=== PATIENT | female | born 1985 ===

== ENCOUNTER 2019-01-30 11:31 | Inpatient (IN) ==
[2019-01-30] MEDS ORDERED: OXYTOCIN 30 UNITS/500 ML BAG IV PRN ×2 (11:56→19:26)
[2019-01-30] MEDS: LACTATED RINGER'S 1,000 ML IV PRN ×2 (11:58→21:23)
[2019-01-30 12:17] LABS: Hematocrit (blood only) 33.2 % (37-47); Hemoglobin 10.5 g/dL (12.0-16.0); Mean Corpuscular Hemoglobin 26.6 pg (25-34); Mean Corpuscular Volume 84.1 fL (80-100); Mean Platelet Volume 10.6 fL (7.4-10.4); Platelet Count 224 K/uL (130-400); RDW Coefficient of Variation 14.7 % (11.5-14.5); RDW Standard Deviation 45.7 fL (36.4-46.3); Red Blood Count 3.95 M/uL (4.2-5.4); White Blood Count 10.29 K/uL (4.8-10.8)
[2019-01-30 12:31] LABS: Mean Corpuscular Hgb Conc 31.6 g/dL (32-36)
--- NOTE | 2019-01-30 12:45 | Obstetrical Progress Note ---
Date of Service January 30, 2019 Subjective Admit Note 33 F P2002 at 39+ weeks admitted with SROM clear fluid and active contractions. FHT Cat 1. Cervix 4-5/75/-2/vertex on exam by RN. GBS is negative. Will admit in labor. Results & Data Vital Signs (Past 12 Hours) Vital Signs Pulse BP 01/30/19 11:36 76 110/61
--- NOTE | 2019-01-30 19:25 | Obstetrical Progress Note ---
Date of Service January 30, 2019 Physical Exam Genitourinary: OB Exam Abdomen: + vertex, + estimated weight (7.5 lbs) and + irregular contractions Manual OB Exam: + cervical dilation 5 cm, + cervical effacement 60%, + station -2 and + amniotic fluid clear OB Exam Monitor Tracing: + external FHT monitor used, + external uterine monitor used and + category I Results & Data Vital Signs (Past 12 Hours) Vital Signs Temp Pulse Resp BP 01/30/19 19:09 36.6 C 67 16 120/66 01/30/19 17:47 36.9 C 59 L 20 107/57 L 01/30/19 15:46 75 106/58 L 01/30/19 15:45 36.9 C 20 01/30/19 13:32 36.7 C 63 20 110/59 L 01/30/19 11:45 36.5 C 18 01/30/19 11:36 76 110/61
[2019-01-30] MEDS ORDERED: ePHEDrine sulfate 50 MG/ML AMP ONE (21:05)
[2019-01-30] MEDS ORDERED: fentaNYL citrate 100 MCG/2 ML VIAL ONE (21:05)
[2019-01-30] MEDS ORDERED: BUPIVACAINE 0.25% 30 ML VIAL ONE (21:05)
[2019-01-30] MEDS ORDERED: fentaNYL 2MCG/ML ROPIV 1.25MG/ML 100 ML BAG EPI ONE (21:06)
--- NOTE | 2019-01-30 21:22 | Anesthesiology Consultation ---
Date of Service January 30, 2019 Assessment & Plan Chart Review Chart Review: Acceptable Risk for Surgery, Patient NOT seen in Pre Admission Testing and Acceptable Risk for Labor Epidural Consults Requested none ASA ASA3 Proposed Anesthesia Anesthesia Type: General, Labor Epidural and CSE Risk / Benefits Reviewed With: PT / POA / Parent / Guardian, Accepts Plan and Informed Consent Obtained History Height/Weight Height: 5 ft 6 in Weight: 88.9 kg Allergies Allergy/AdvReac Type Severity Reaction Status Date / Time No Known Allergies Allergy Verified 12/31/18 19:58 Medications Home Medications Medication Instructions Recorded Confirmed Last Taken cholecalciferol (vitamin D3) 1,000 unit PO DAILY 12/31/18 01/30/19 1 Day Ago [Vitamin D3] ~01/29/19 levothyroxine 100 mcg PO DAILY 12/31/18 01/30/19 01/30/19 vit [id number] 1 tab PO DAILY 12/31/18 01/30/19 1 Day Ago [ Vitamin] ~01/29/19 Active Medications Generic Name Dose Route Start Last Admin Trade Name Freq PRN Reason Stop Dose Admin Lactated Ringer's 1,000 mls @ 125 mls/hr 01/30/19 11:56 01/30/19 21:03 Lr IV 02/01/19 11:55 999 mls/hr .Q8H PRN Infusion L&D Protocol Protocol Oxytocin 30 units in 500 mls @ 1 mls/hr 01/30/19 19:26 01/30/19 19:56 Pitocin IV 02/01/19 19:25 0.06 units/hr .Q24H PRN 1 mls/hr Labor Induction/Augmentation Administration Protocol 0.06 UNITS/HR NPO Date Last Intake of Fluids: 01/30/19 Time Last Intake of Fluids: 19:15 Date Last Intake of Solids: 01/30/19 Time Last Intake of Solids: 08:00 Past Medical History Medical History Classic migraine nonproblematic with this Gestational diabetes 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 Observed for 2 weeks then released at 36 weeks. Vitamin D deficiency Exercise / Class Metabolic Activity II 4-5 Yardwork/Stairs/Walk up hill Past Surgical History Surgical History Hx of cholecystectomy Past Anesthesia History No Hx of Anesthesia Complications and No Family Hx of Anesthesia Complications History of PONV No Hx of PONV and No Hx of Motion Sickness Social History Smoking Status: Never smoker Do You Dip or Chew Tobacco: No Hx Alcohol Use: No Hx Substance Use: No substance use type: does not use Physical Exam Vital Signs Last Vital Signs Temp 36.5 C 01/30/19 21:00 Pulse 59 L 01/30/19 21:13 Resp 16 01/30/19 21:00 BP 105/53 L 01/30/19 20:59 Pulse Ox 99 01/30/19 21:13 Constitutional + obese ENMT Mouth: + small oral opening; no dentition abnormality Thyromental Distance: < 3.5 Finger Breadths Mallampati Class: III Neck normal visual inspection and trachea midline; neck extension not limited Respiratory normal respiratory effort Auscultation: lungs clear to auscultation bilaterally Cardiovascular Rate/Rhythm: regular rate and regular rhythm Heart Sounds: no murmur Vessels: no carotid bruit Musculoskeletal Spine: lumbar spine normal to inspection; normal cervical ROM Neurologic moves all extremities Motor/Sensory: no sensory deficit Psychiatric Orientation: alert and oriented x 3 Testing Laboratory Results 01/30/19 12:06
[2019-01-30] MEDS ORDERED: NALOXONE HCL 0.4 MG/1 ML VIAL/CARP IV PRN (21:46)
[2019-01-30] MEDS ORDERED: NALBUPHINE HCL INJ 10 MG/ML AMP IV PRN (21:46)
[2019-01-30] MEDS ORDERED: fentaNYL 2MCG/ML ROPIV 1.25MG/ML 100 ML BAG EPI PRN (21:46)
[2019-01-30] MEDS ORDERED: PROMETHAZINE HCL 25 MG in SODIUM CHLORIDE 0.9% 50 ML IV PRN (21:46)
[2019-01-30] MEDS ORDERED: ONDANSETRON INJ 2 MG/ML 2 ML VIAL IV PRN (21:46)
[2019-01-30] MEDS ORDERED: ePHEDrine sulfate 50 MG/ML AMP IV PRN (21:46)
[2019-01-30] MEDS ORDERED: DiphenhydrAMINE HCL 50 MG/ML VIAL IV PRN (21:46)
[2019-01-30] MEDS ORDERED: NALOXONE HCL 1 MG in SODIUM CHLORIDE 0.9% 1000ML 1,000 ML IV PRN (21:46)
[2019-01-31] MEDS: LACTATED RINGER'S 1,000 ML IV PRN ×2 (01:56→06:31)
--- NOTE | 2019-01-31 05:26 | Obstetrical Progress Note ---
Date of Service January 31, 2019 Physical Exam Genitourinary: Manual OB Exam: + cervical dilation 9 cm, + cervical effacement 100% and + station -1 OB Exam Monitor Tracing: + external FHT monitor used, + external uterine monitor used and + category II bulging bag ruptured for clear fluid with amni-hook Results & Data Vital Signs (Past 12 Hours) Vital Signs Temp Pulse Resp BP Pulse Ox 01/31/19 05:18 58 L 97 01/31/19 05:16 57 L 18 94/50 L 01/31/19 05:13 83 97 01/31/19 05:08 63 98 01/31/19 05:03 72 97 01/31/19 05:02 36.8 C 16 01/31/19 05:00 66 102/63 01/31/19 04:58 71 98 01/31/19 04:53 75 98 01/31/19 04:48 60 95 01/31/19 04:46 56 L 108/63 01/31/19 04:43 61 97 01/31/19 04:38 67 98 01/31/19 04:33 67 96 01/31/19 04:30 60 104/65 01/31/19 04:28 69 96 01/31/19 04:23 69 98 01/31/19 04:18 64 96 01/31/19 04:16 66 108/67 01/31/19 04:13 66 97 01/31/19 04:08 76 96 01/31/19 04:03 70 97 01/31/19 04:00 36.7 C 59 L 16 104/57 L 01/31/19 03:59 68 89 L 01/31/19 03:58 84 95 01/31/19 03:53 61 94 01/31/19 03:48 64 94 01/31/19 03:46 60 103/56 L 01/31/19 03:43 64 94 01/31/19 03:38 59 L 96 01/31/19 03:33 74 95 01/31/19 03:31 71 103/65 01/31/19 03:28 70 96 01/31/19 03:23 79 90 01/31/19 03:20 69 87 L 01/31/19 03:18 56 L 94 01/31/19 03:16 59 L 106/55 L 01/31/19 03:13 58 L 93 01/31/19 03:08 59 L 96 01/31/19 03:03 59 L 95 01/31/19 03:01 58 L 108/60 01/31/19 02:58 60 95 01/31/19 02:53 77 96 01/31/19 02:48 62 94 01/31/19 02:46 57 L 105/59 L 01/31/19 02:43 61 96 01/31/19 02:42 70 90 01/31/19 02:38 65 93 01/31/19 02:33 59 L 95 01/31/19 02:31 66 105/60 01/31/19 02:28 70 98 01/31/19 02:23 58 L 93 01/31/19 02:18 58 L 93 01/31/19 02:17 57 L 95/50 L 01/31/19 02:13 65 94 01/31/19 02:08 62 96 01/31/19 02:03 80 96 01/31/19 02:02 71 16 103/55 L 01/31/19 01:58 71 96 01/31/19 01:57 36.5 C 16 01/31/19 01:53 90 97 01/31/19 01:48 102 H 98 01/31/19 01:47 75 16 100/63 01/31/19 01:43 76 96 01/31/19 01:38 83 97 01/31/19 01:33 81 95 01/31/19 01:30 85 116/70 01/31/19 01:28 81 96 01/31/19 01:23 110 H 98 01/31/19 01:18 72 97 01/31/19 01:15 71 110/68 01/31/19 01:13 80 98 01/31/19 01:08 83 96 01/31/19 01:03 65 98 01/31/19 01:00 88 116/69 01/31/19 00:58 69 97 01/31/19 00:53 74 97 01/31/19 00:48 68 97 01/31/19 00:47 66 16 114/67 01/31/19 00:43 68 97 01/31/19 00:38 61 96 01/31/19 00:33 68 96 01/31/19 00:31 72 16 109/67 01/31/19 00:28 70 96 01/31/19 00:23 36.7 C 71 18 96 01/31/19 00:18 63 96 01/31/19 00:16 81 16 125/68 01/31/19 00:13 80 92 01/31/19 00:09 86 89 L 01/31/19 00:08 66 93 01/31/19 00:03 72 95 01/31/19 00:00 61 16 109/69 01/30/19 23:58 95 H 96 01/30/19 23:53 61 95 01/30/19 23:48 69 96 01/30/19 23:47 60 113/70 01/30/19 23:43 81 97 01/30/19 23:38 77 97 01/30/19 23:34 80 89 L 01/30/19 23:33 95 H 95 01/30/19 23:31 64 16 108/65 01/30/19 23:28 67 93 01/30/19 23:23 63 95 01/30/19 23:18 65 95 01/30/19 23:16 62 105/63 01/30/19 23:13 62 94 01/30/19 23:08 59 L 96 01/30/19 23:03 55 L 95 01/30/19 23:02 62 90 01/30/19 23:00 36.4 C L 71 16 98/53 L 01/30/19 22:58 57 L 94 01/30/19 22:53 61 93 01/30/19 22:48 66 94 01/30/19 22:47 56 L 16 99/53 L 01/30/19 22:43 53 L 94 01/30/19 22:38 70 94 01/30/19 22:33 59 L 96 01/30/19 22:29 51 L 100/53 L 01/30/19 22:28 57 L 94 01/30/19 22:26 55 L 93/52 L 01/30/19 22:23 57 L 94 01/30/19 22:19 50 L 100/50 L 01/30/19 22:18 54 L 94 01/30/19 22:14 53 L 99/51 L 01/30/19 22:13 56 L 94 01/30/19 22:11 54 L 99/55 L 01/30/19 22:08 54 L 94 01/30/19 22:06 56 L 94 01/30/19 22:04 56 L 97/52 L 01/30/19 22:03 55 L 95 01/30/19 22:00 54 L 16 96/50 L 94 01/30/19 21:58 61 96 01/30/19 21:54 55 L 98/50 L 01/30/19 21:53 57 L 97 01/30/19 21:51 58 L 99/52 L 01/30/19 21:50 62 110/56 L 01/30/19 21:48 72 97/52 L 97 01/30/19 21:45 57 L 86/53 L 01/30/19 21:43 64 97 01/30/19 21:42 65 94/60 L 01/30/19 21:39 57 L 16 106/70 01/30/19 21:38 60 98 01/30/19 21:36 72 16 120/74 01/30/19 21:33 62 99 01/30/19 21:28 61 98 01/30/19 21:23 62 98 01/30/19 21:18 62 98 01/30/19 21:13 59 L 99 01/30/19 21:00 36.5 C 16 01/30/19 20:59 70 105/53 L 01/30/19 19:58 75 16 111/73 01/30/19 19:09 36.6 C 67 16 120/66 01/30/19 17:47 36.9 C 59 L 20 107/57 L
--- NOTE | 2019-01-31 06:09 | Delivery Summary ---
Vaginal Delivery Summary Date of Service January 31, 2019 Delivery Note live male TANJA over intact perineum with delayed cord clamping and Apgars 8/9 weight pending. Cord blood obtained and placenta delivered spontaneously and intact. No tears. EBL 150 ml. Final sponge and instrument count are correct. Mom and baby stable.
[2019-01-31] MEDS ORDERED: BENZOCAINE 20% AER SPR 82.5 GM CAN EXT PRN (06:14)
[2019-01-31] MEDS ORDERED: MEASLES, MUMPS & RUBELLA VIRUS VIAL SQ ONE (06:14)
[2019-01-31] MEDS ORDERED: DIPHTHERIA/TETANUS/PERTUSSIS 0.5 ML SYR/VIAL IM ONE (06:14)
[2019-01-31] MEDS ORDERED: HYDROCORTISONE ACETATE 25 MG SUPP PR PRN (06:14)
[2019-01-31] MEDS ORDERED: ACETAMINOPHEN 325 MG TAB PO PRN (06:14)
[2019-01-31] MEDS ORDERED: SUPERCREAM 0.870% 15 GM JAR EXT PRN (06:14)
[2019-01-31] MEDS ORDERED: BISACODYL 10 MG SUPP PR PRN (06:14)
[2019-01-31] MEDS ORDERED: OXYTOCIN 30 UNITS/500 ML BAG IV PRN (06:14)
[2019-01-31] MEDS: IBUPROFEN 600 MG TAB PO PRN ×4 (06:29→19:31)
[2019-01-31] MEDS: LEVOTHYROXINE SODIUM 100 MCG TABLET PO SCH (06:55)
--- NOTE | 2019-01-31 07:58 | Anesthesiology Progress Note ---
Date of Service January 31, 2019 Anesthesia Post Procedure Vital Signs Vital Signs: Temp Pulse Resp BP Pulse Ox 01/31/19 07:41 52 L 101/63 01/31/19 07:33 36.5 C 53 L 16 98/62 L 01/31/19 07:26 56 L 100/59 L 01/31/19 07:11 99/57 L 01/31/19 06:56 57 L 16 109/57 L 01/31/19 06:42 63 16 108/65 01/31/19 06:27 60 18 88/52 L 01/31/19 06:11 73 18 101/58 L 01/31/19 05:56 85 18 107/59 L 01/31/19 05:53 87 97 01/31/19 05:48 83 97 01/31/19 05:47 105 H 144/72 H 01/31/19 05:43 113 H 98 01/31/19 05:38 113 H 97 01/31/19 05:33 84 99 01/31/19 05:28 95 H 98 01/31/19 05:23 89 99 01/31/19 05:18 58 L 97 01/31/19 05:16 57 L 18 94/50 L 01/31/19 05:13 83 97 01/31/19 05:08 63 98 01/31/19 05:03 72 97 01/31/19 05:02 36.8 C 16 01/31/19 05:00 66 102/63 01/31/19 04:58 71 98 01/31/19 04:53 75 98 01/31/19 04:48 60 95 01/31/19 04:46 56 L 108/63 01/31/19 04:43 61 97 01/31/19 04:38 67 98 01/31/19 04:33 67 96 01/31/19 04:30 60 104/65 01/31/19 04:28 69 96 01/31/19 04:23 69 98 01/31/19 04:18 64 96 01/31/19 04:16 66 108/67 01/31/19 04:13 66 97 01/31/19 04:08 76 96 01/31/19 04:03 70 97 01/31/19 04:00 36.7 C 59 L 16 104/57 L 01/31/19 03:59 68 89 L 01/31/19 03:58 84 95 01/31/19 03:53 61 94 01/31/19 03:48 64 94 01/31/19 03:46 60 103/56 L 01/31/19 03:43 64 94 01/31/19 03:38 59 L 96 01/31/19 03:33 74 95 01/31/19 03:31 71 103/65 01/31/19 03:28 70 96 01/31/19 03:23 79 90 01/31/19 03:20 69 87 L 01/31/19 03:18 56 L 94 01/31/19 03:16 59 L 106/55 L 01/31/19 03:13 58 L 93 01/31/19 03:08 59 L 96 01/31/19 03:03 59 L 95 01/31/19 03:01 58 L 108/60 01/31/19 02:58 60 95 01/31/19 02:53 77 96 01/31/19 02:48 62 94 01/31/19 02:46 57 L 105/59 L 01/31/19 02:43 61 96 01/31/19 02:42 70 90 01/31/19 02:38 65 93 01/31/19 02:33 59 L 95 01/31/19 02:31 66 105/60 01/31/19 02:28 70 98 01/31/19 02:23 58 L 93 01/31/19 02:18 58 L 93 01/31/19 02:17 57 L 95/50 L 01/31/19 02:13 65 94 01/31/19 02:08 62 96 01/31/19 02:03 80 96 01/31/19 02:02 71 16 103/55 L 01/31/19 01:58 71 96 01/31/19 01:57 36.5 C 16 01/31/19 01:53 90 97 01/31/19 01:48 102 H 98 01/31/19 01:47 75 16 100/63 01/31/19 01:43 76 96 01/31/19 01:38 83 97 01/31/19 01:33 81 95 01/31/19 01:30 85 116/70 01/31/19 01:28 81 96 01/31/19 01:23 110 H 98 01/31/19 01:18 72 97 01/31/19 01:15 71 110/68 01/31/19 01:13 80 98 01/31/19 01:08 83 96 01/31/19 01:03 65 98 01/31/19 01:00 88 116/69 01/31/19 00:58 69 97 01/31/19 00:53 74 97 01/31/19 00:48 68 97 01/31/19 00:47 66 16 114/67 01/31/19 00:43 68 97 01/31/19 00:38 61 96 01/31/19 00:33 68 96 01/31/19 00:31 72 16 109/67 01/31/19 00:28 70 96 01/31/19 00:23 36.7 C 71 18 96 01/31/19 00:18 63 96 01/31/19 00:16 81 16 125/68 01/31/19 00:13 80 92 01/31/19 00:09 86 89 L 01/31/19 00:08 66 93 01/31/19 00:03 72 95 01/31/19 00:00 61 16 109/69 01/30/19 23:58 95 H 96 01/30/19 23:53 61 95 01/30/19 23:48 69 96 01/30/19 23:47 60 113/70 01/30/19 23:43 81 97 01/30/19 23:38 77 97 01/30/19 23:34 80 89 L 01/30/19 23:33 95 H 95 01/30/19 23:31 64 16 108/65 01/30/19 23:28 67 93 01/30/19 23:23 63 95 01/30/19 23:18 65 95 01/30/19 23:16 62 105/63 01/30/19 23:13 62 94 01/30/19 23:08 59 L 96 01/30/19 23:03 55 L 95 01/30/19 23:02 62 90 01/30/19 23:00 36.4 C L 71 16 98/53 L 01/30/19 22:58 57 L 94 01/30/19 22:53 61 93 01/30/19 22:48 66 94 01/30/19 22:47 56 L 16 99/53 L 01/30/19 22:43 53 L 94 01/30/19 22:38 70 94 01/30/19 22:33 59 L 96 01/30/19 22:29 51 L 100/53 L 01/30/19 22:28 57 L 94 01/30/19 22:26 55 L 93/52 L 01/30/19 22:23 57 L 94 01/30/19 22:19 50 L 100/50 L 01/30/19 22:18 54 L 94 01/30/19 22:14 53 L 99/51 L 01/30/19 22:13 56 L 94 01/30/19 22:11 54 L 99/55 L 01/30/19 22:08 54 L 94 01/30/19 22:06 56 L 94 01/30/19 22:04 56 L 97/52 L 01/30/19 22:03 55 L 95 01/30/19 22:00 54 L 16 96/50 L 94 01/30/19 21:58 61 96 01/30/19 21:54 55 L 98/50 L 01/30/19 21:53 57 L 97 01/30/19 21:51 58 L 99/52 L 01/30/19 21:50 62 110/56 L 01/30/19 21:48 72 97/52 L 97 01/30/19 21:45 57 L 86/53 L 01/30/19 21:43 64 97 01/30/19 21:42 65 94/60 L 01/30/19 21:39 57 L 16 106/70 01/30/19 21:38 60 98 01/30/19 21:36 72 16 120/74 01/30/19 21:33 62 99 01/30/19 21:28 61 98 01/30/19 21:23 62 98 01/30/19 21:18 62 98 01/30/19 21:13 59 L 99 01/30/19 21:00 36.5 C 16 01/30/19 20:59 70 105/53 L 01/30/19 19:58 75 16 111/73 01/30/19 19:09 36.6 C 67 16 120/66 01/30/19 17:47 36.9 C 59 L 20 107/57 L 01/30/19 15:46 75 106/58 L 01/30/19 15:45 36.9 C 20 01/30/19 13:32 36.7 C 63 20 110/59 L 01/30/19 11:45 36.5 C 18 01/30/19 11:36 76 110/61 Pain Intensity Perineal: Pain Intensity: 4 Transfer of Care Handoff Completed per policy Notes Mental Status: alert / awake / arousable and participated in evaluation Patient Amnestic to Procedure: Yes Nausea / Vomiting: adequately controlled Pain: adequately controlled Airway Patency, RR, SpO2: stable & adequate BP & HR: stable & adequate Hydration State: stable & adequate Anesthetic Complications: no major complications apparent and Pt Satisfied with anesthetic care
[2019-01-31] MEDS ORDERED: INFLUENZA VIRUS QUAD VACCINE 0.5 ML SYR IM ONE (08:00)
[2019-01-31] MEDS ORDERED: INFLUENZA ADMINISTRATION CHARGE ONE (08:00)
[2019-01-31] MEDS: CHOLECALCIFEROL 1,000 UNITS TAB PO SCH (08:31)
[2019-01-31] MEDS: PRENATAL VITAMIN 1 TAB PO SCH (08:31)
[2019-01-31] MEDS: FERROUS SULFATE 325 MG TAB PO SCH (08:48)
[2019-01-31] MEDS: DOCUSATE SODIUM 100 MG CAP PO SCH ×2 (08:48→20:30)
[2019-01-31] MEDS ORDERED: PRENATAL VITAMIN 1 TAB PO SCH (09:00)
[2019-02-01] MEDS: IBUPROFEN 600 MG TAB PO PRN ×2 (03:16→12:37)
[2019-02-01 03:27] VITALS: O2SAT 99
[2019-02-01] MEDS: LEVOTHYROXINE SODIUM 100 MCG TABLET PO SCH (06:07)
[2019-02-01 07:37] LABS: Hematocrit (blood only) 29.9 % (37-47); Hemoglobin 9.4 g/dL (12.0-16.0); Mean Corpuscular Hemoglobin 26.3 pg (25-34); Mean Corpuscular Hgb Conc 31.4 g/dL (32-36); Mean Corpuscular Volume 83.5 fL (80-100); Mean Platelet Volume 10.5 fL (7.4-10.4); Platelet Count 200 K/uL (130-400); RDW Coefficient of Variation 14.9 % (11.5-14.5); RDW Standard Deviation 45.5 fL (36.4-46.3); Red Blood Count 3.58 M/uL (4.2-5.4); White Blood Count 9.52 K/uL (4.8-10.8)
[2019-02-01 07:58] VITALS: BP 96/64; PULSE 59; TEMP 97.9
--- NOTE | 2019-02-01 08:20 | Obstetrical Progress Note ---
Date of Service February 01, 2019 Subjective Patient is seen and examined. She feels well, no complaints. Likes to be discharged Ambulating without dizziness Voiding without difficulty Tolerating regular diet with out N&V Bleeding is minimal No fever/ chills/ CP/ SOB/ N&V/ Leg pain Breast/ bottle feeding without problems Vital Signs Temp Pulse Resp BP Pulse Ox 02/01/19 07:57 36.6 C 59 L 16 96/64 L 02/01/19 03:10 36.7 C 54 L 16 105/70 99 01/31/19 23:05 36.7 C 50 L 16 96/60 L 98 01/31/19 19:31 36.7 C 58 L 18 103/67 99 01/31/19 15:26 36.7 C 53 L 18 109/71 96 01/31/19 13:03 36.9 C 59 L 16 110/59 L 01/31/19 08:45 36.5 C 75 20 115/64 PE: General: Alert, orientedx3, NAD Abd: soft, NT, fundus firm, below Umbilicus Perineum intact, Lochia rubra minimal Ext; NT, no edema AP: 33 yo s/p , ppd# 1 VSS Afebrile doing well Continue routine care All questions were answered Discussed when to call D/C home , f/u in office Results & Data Vital Signs (Past 12 Hours) Vital Signs Temp Pulse Resp BP Pulse Ox 02/01/19 07:57 36.6 C 59 L 16 96/64 L 02/01/19 03:10 36.7 C 54 L 16 105/70 99 01/31/19 23:05 36.7 C 50 L 16 96/60 L 98
[2019-02-01] MEDS: FERROUS SULFATE 325 MG TAB PO SCH (08:35)
[2019-02-01] MEDS: DOCUSATE SODIUM 100 MG CAP PO SCH (08:35)
[2019-02-01] MEDS: PRENATAL VITAMIN 1 TAB PO SCH (08:35)
[2019-02-01] MEDS: CHOLECALCIFEROL 1,000 UNITS TAB PO SCH (08:37)
[2019-02-01] MEDS ORDERED: BISACODYL 5 MG TABEC PO SCH (20:00)
== END 2019-02-01 14:00 | disposition home or self-care (01) | DRG 807 ==
LOC: OPB 11:31 → 4S1 11:35 → 4S2 01-31 08:37